=== PATIENT | male | born 1945 | race Two or more races ===

== ENCOUNTER 2020-03-21 11:54 | Emergency (ER) | payer OTHER ==
[~2020-03-21] VITALS: Ht 165.1 cm; Wt 74.8 kg
[~2020-03-21 11:54] MED LIST: ASPI-498 OR; ATOR10TA PO; LIS5T GT; MEC25T GT; METF-489 PO; NAP500T GT
[2020-03-21 12:08] VITALS: BP 158/63
[2020-03-21] MEDS ORDERED: KETOROLAC TROMETH 30 MG/ML 1ML VIAL IM ONE (14:00)
[2020-03-21] MEDS ORDERED: HYDROcodone-ACET 5/325MG TAB PO ONE (14:00)
== END 2020-03-21 14:32 | disposition home or self-care (01) ==
LOC: ER 11:54
DX: S16.1XXA Strain of muscle, fascia and tendon at neck level, initial encounter (principal); M50.322 Other cervical disc degeneration at C5-C6 level; E11.9 Type 2 diabetes mellitus without complications; E78.5 Hyperlipidemia, unspecified; F17.210 Nicotine dependence, cigarettes, uncomplicated; X50.1XXA Overexertion from prolonged static or awkward postures, initial encounter; Y93.89 Activity, other specified; Y92.89 Other specified places as the place of occurrence of the external cause; Y99.8 Other external cause status
CPT/HCPCS: 72040; 96372; 99283; J1885

== ENCOUNTER 2024-09-01 15:29 | Inpatient (IN) | payer OTHER ==
[~2024-09-01] VITALS: Ht 165.1 cm; Wt 64.1 kg
--- NOTE | 2024-09-01 16:13 | ED.PDOC ---
Altered Mental Status HPI Comments 78 year old male brought in by granddaughter presents to the ED with chief complaint ALOC. Granddaughter reports that the patient was last seen normal at 2pm today. Granddaughter relays that the patient is currently experiencing his 3rd episode of ALOC with associated fatigue. Patient has history of DM and dementia. Patient denies any pain at this time. Granddaughter denies any fever, chills, chest pain, SOB, or N/V. Chief Complaint: General Weakness Time Seen by MD: 16:00 Primary Care Provider: ROMIE Reviewed Notes: Nurses Notes, Medications, Allergies Allergies: Coded Allergies: NO KNOWN ALLERGIES (Unverified , 05/27/13) Home Meds Reported Medications Naproxen (NAPROSYN TABLET) 500 Mg Tb, 0 GT 05/27/13 Lisinopril (ZESTRIL TABLET) 5 Mg Tb, 0 GT 05/27/13 Atorvastatin Calcium (Lipitor) 10 Mg Tab, 0 PO, TAB 05/27/13 Aspirin (ASPIRIN 81) 81 Mg Tab, 81 MG OR, TAB 05/27/13 Meclizine Hcl (ANTIVERT TABLET) 25 Mg Tb, 0 GT 05/27/13 Metformin Hydrochloride (METFORMIN HCL ER) 500 Mg Tab, 0 PO, TAB 05/27/13 Information Source: Relative (GrandChild) Mode of Arrival: Wheelchair Severity: Moderate, Unable to Care for Self Timing: Hours Duration: Since onset Prehospital treatment: None Quality: Decreased Alertness, Change in Behavior, Confusion Recent: None History of: Dementia, Diabetes Past Medical History PAST MEDICAL HISTORY: Dementia, DM, High Lipids Surgical History: Denies all surgeries Family History Family History: No family hx of DM Social History Smoker: Cigarettes, Less Than 1 Pack/Day, Other Alcohol: Denies ETOH Use Drugs: Denies Drug Use Lives In: Home Constitutional: reports: fatigue; denies: chills, diaphoresis, fever, malaise, sweats, weakness, others EENTM: denies: blurred vision, double vision, ear bleeding, ear discharge, ear drainage, ear pain, ear ringing, eye pain, eye redness, hearing loss, mouth pain, mouth swelling, nasal discharge, nose bleeding, nose congestion, nose pain, photophobia, tearing, throat pain, throat swelling, voice changes, others Respiratory: denies: cough, hemoptysis, orthopnea, SOB at rest, shortness of breath, SOB with excertion, stridor, wheezing, others Cardiovascular: denies: chest pain, dizzy spells, diaphoresis, Dyspnea on exertion, edema, irregular heart beat, left arm pain, lightheadedness, palpitations, PND, syncope, others Gastrointestinal: denies: abdomen distended, abdominal pain, blood streaked bowels, constipated, diarrhea, dysphagia, difficulty swallowing, hematemesis, melena, nausea, poor appetite, poor fluid intake, rectal bleeding, rectal pain, vomiting, others Genitourinary: denies: burning, dysuria, flank pain, frequency, hematuria, incontinence, penile discharge, penile sore, pain, testicle pain, testicle swelling, urgency, others Neurological: denies: dizziness, fainting, headache, left sided numbness, left sided weakness, numbness, paresthesia, pre-existing deficit, right sided numbness, right sided weakness, seizure, speech problems, tingling, tremors, weakness, others Musculoskeletal: denies: back pain, gout, joint pain, joint swelling, muscle pain, muscle stiffness, neck pain, others Integumetry: denies: bruises, change in color, change in hair/nails, dryness, laceration, lesions, lumps, rash, wounds, others Allergic/Immunocompromised: denies: Difficulty Healing, Frequent Infections, Hives, Itching, others Hematologic/Lymphatic: denies: anemia, blood clots, easy bleeding, easy bruising, swollen glands, others Endocrine: denies: excessive hunger, excessive sweating, excessive thirst, excessive urination, flushing, intolerance to cold, intolerance to heat, unexplained weight gain, unexplained weight loss, others Psychiatric: denies: anxiety, bipolar disorder, depression, hopeless, panic disorder, schizophrenia, sleepless, suicidal, others Unable to Obtain due to: Altered Mental Status All Other Systems: Reviewed and Negative Physical Exam General Appearance: No Apparent Distress, Normal, Other (Fatigued) HEENT: Normal ENT Inspection, Pharynx Normal, TMs Normal Neck: Full Range of Motion, Non-Tender, Normal, Normal Inspection Respiratory: Chest Non-Tender, Lungs Clear, No Accessory Muscle Use, No Respiratory Distress, Normal Breath Sounds Cardiovascular: No Edema, No JVD, No Murmur, No Gallop, Normal Peripheral Pulses, Regular Rate/Rhythm Breast Exam: Deferred Gastrointestinal: No Organomegaly, Non Tender, No Pulsatile Mass, Normal Bowel Sounds, Soft Genitalia: Deferred Pelvic: Deferred Rectal: Deferred Extremities: No calf tenderness, Normal capillary refill, Normal inspection, Normal range of motion, Non-tender, No pedal edema Musculoskeletal : Apperance: Normal Neurologic: Alert, power screwdriver operator II-XII nml as Tested, No Motor Deficits, Normal Affect, Normal Mood, No Sensory Deficits, Other (Negative pronator drift.) Cerebellar Function: Normal Reflexes: Normal Skin: Dry, Normal Color, Warm Lymphatic: No Adenopathy Was a procedure done? Was a procedure done?: No Differential Diagnosis (ALOC) Differential Diagnosis: Hypoglycemia, DKA, Seizure, Closed Head Injury, CVA, Mass Lesion X-Ray, Labs, Meds, VS Vital Signs Date Time Temp Pulse Resp B/P (MAP) Pulse Ox O2 Delivery O2 Flow Rate FiO2 09/01/24 18:26 57 09/01/24 17:00 55 15 140/65 (90) 98 09/01/24 16:42 51 12 99 Room Air* 0 21 09/01/24 15:33 97.3 86 16 135/62 (86) 97 97.3 Lab Test 09/01/24 18:31 09/01/24 17:01 09/01/24 16:27 09/01/24 16:12 Range/Units Urine Color Yellow Yellow Urine Clarity Clear Clear Urine pH 8.0 5.0-9.0 Urine Specific Many 1.022 1.001-1.035 Urine Protein Trace H Negative Urine Ketones Negative Negative Urine Blood Negative Negative /uL Urine Nitrite Negative Negative Urine Bilirubin Negative Negative Urine Urobilinogen Normal Negative mg/dL Urine Leukocyte Esterase Negative Negative /uL Urine RBC 1 0 - 3 /hpf Urine Microscopic WBC 1 0-3 /HPF Urine Squamous Epithelial Cells None seen <5 /hpf Urine Bacteria None seen None Seen /hpf Urine Mucus Few None Seen Urine Glucose Normal Normal mg/dL Troponin I High Sensitivity 3 L < 3 L </=54 ng/L POC Glucose 98 70-106 mg/dl White Blood Count 6.8 4.4-10.8 10^3/uL Red Blood Count 4.53 4.5-5.90 10^6/uL Hemoglobin 14.0 13.5-17.5 g/dL Hematocrit 41.8 41.0-53.0 % Mean Corpuscular Volume 92.2 80.0-100.0 fL Mean Corpuscular Hemoglobin 30.9 28.0-32.0 pg Mean Corpuscular Hemoglobin Concent 33.5 32.0-36.0 g/dL Red Cell Distribution Width 14.5 H 11.8-14.3 % Platelet Count 202 140-450 10^3/uL Mean Platelet Volume 7.7 6.9-10.8 fL Neutrophils (%) (Auto) 75.0 37.0-80.0 % Lymphocytes (%) (Auto) 16.7 10.0-50.0 % Monocytes (%) (Auto) 5.1 0.0-12.0 % Eosinophils (%) (Auto) 2.8 0.0-7.0 % Basophils (%) (Auto) 0.4 0.0-2.0 % Neutrophils # (Auto) 5.1 1.6-8.6 10 ^3/uL Lymphocytes # (Auto) 1.1 0.4-5.4 10 ^3/uL Monocytes # (Auto) 0.3 0-1.3 10 ^3/uL Eosinophils # (Auto) 0.2 0-0.8 10 ^3/uL Basophils # (Auto) 0 0-0.2 10 ^3/uL Nucleated Red Blood Cells 0.1 % Sodium Level 140 136-145 mmol/L Potassium Level 4.1 3.5-5.1 mmol/L Chloride Level 104 98-107 mmol/L Carbon Dioxide Level 27 20-31 mmol/L Anion Gap 9 5-15 Blood Urea Nitrogen 17 9-23 mg/dL Creatinine 0.87 0.700-1.30 mg/dL Glomerular Filtration Rate Calc 88 >90 mL/min BUN/Creatinine Ratio 19.5 10.0-20.0 Serum Glucose 96 74-106 mg/dL Calcium Level 10.3 8.7-10.4 mg/dL Total Bilirubin 0.4 0.2-1.0 mg/dL Aspartate Amino Transferase (AST) 14 13-40 U/L Alanine Aminotransferase (ALT) 24 7-40 U/L Alkaline Phosphatase 85 46-116 U/L Total Protein 6.5 5.7-8.2 g/dL Albumin 4.5 3.2-4.8 g/dL Test 09/01/24 15:42 Range/Units POC Glucose 90 70-106 mg/dl CT Head: FINDINGS: There is sulcal and ventricular prominence. The brainshows normal morphology and mcintosh-white matter differentiation, without intracranial hemorrhage, extra-axial fluid collection, mass effect or acute large vessel infarct. The ventricles are normal in size. The basal cisterns are patent. The skull and visible facial bones are intact. The paranasal sinuses, mastoid air cells and middle ear cavities are well-aerated. The soft tissues of the scalp are unremarkable. IMPRESSION: No acute intracranial abnormality. Chest XR: FINDINGS: Lungs: Atelectasis in the lung bases. No focal consolidation. Cardiac: Heart size is within normal limits. Pulmonary vasculature: Unremarkable. Mediastinum/jay: Unremarkable. Bones: No acute osseous abnormality identified. Other: No other significant findings. IMPRESSION: No evidence of acute disease in the chest. X-Ray, Labs, Meds, VS Comment Imaging: X-rays and CT scans were reviewed and interpreted by this provider, imaging shows no fractures and no pathological disease. Pending radiology review. Laboratory: Labs reviewed and interpreted by this provider. No significant abnormalities noted. Patient has prior medical visits reviewed. Med reconciliation performed Vital signs reviewed Upon 2nd assessment, patient was alert and oriented, nonlethargic. He was concerned that this is the 3rd episode patient was had in one week. Patient could not see a primary care doctor until middle of September. Patient will be admitted for transient and LOC Recommend neurology consult in the morning Images Reviewed?: Images reviewed and evaluated by me Time of 1ST Reevaluation: 17:00 Reevaluation 1ST: Unchanged Patient Education/Counseling: Diagnosis, Treatment Family Education/Counseling: Diagnosis, Treatment Departure 1 Departure Time of Disposition: 18:56 Impression: Primary Impression: Dementia Qualified Codes: F03.A11 - Unspecified dementia, mild, with agitation Additional Impressions: Metabolic encephalopathy TIA (transient ischemic attack) Disposition: ADMITTED INPATIENT Condition: Stable Discharged With: Relative, Spouse Critical Care Note Critical Care Time?: No Stability Stability form required: No Heart Score Heart Score: Heart Score Response (Comments) Value History N/A 0 EKG N/A 0 Age N/A 0 Risk Factors N/A 0 Troponin N/A 0 Total 0 I personally scribed for AFSANEH HAWKINS SHOWROOM SALES ASSISTANT ([email or web address]) on 09/01/24 at 16:13. Electronically submitted by Fahad Reddy ([email or web address]). I personally scribed for AFSANEH HAWKINS E SHOWROOM SALES ASSISTANT ([email or web address]) on 09/01/24 at 16:59. Electronically submitted by Fahad Reddy ([email or web address]). I personally scribed for AFSANEH HAWKINS E SHOWROOM SALES ASSISTANT ([email or web address]) on 09/01/24 at 17:00. Electronically submitted by Fahad Reddy ([email or web address]). AFSANEH HAWKINS SHOWROOM SALES ASSISTANT Sep 01, 2024 16:13
--- NOTE | 2024-09-01 16:15 | DVH ---
CT HEAD WITHOUT CONTRAST INDICATION: ALOC : 78 old Male ALOC EXAM DATE: 09/01/2024 03:42 PM COMPARISON: None RADIATION DOSE: CTDIvol: 54.16 mGy, DLP: 868.24 mGy*cm PROCEDURE: CT scans of the head were obtained from the vertex to the skull base. Sagittal and coronal reconstructions were provided. All CT scans at this medical facility are performed using dose modulation techniques as appropriate t o a performed exam including the following: Automated exposure control was utilized; adjustment of th e MA and/or KV according to patient size; and use of iterative reconstruction technique. FINDINGS: There is sulcal and ventricular prominence. The brainshows normal morphology and mcintosh-whi te matter differentiation, without intracranial hemorrhage, extra-axial fluid collection, mass effect or acute large vessel infarct. The ventricles are normal in size. The basal cisterns are patent. The skull and visible facial bones are intact. The paranasal sinuses, mastoid air cells and middle ear c avities are well-aerated. The soft tissues of the scalp are unremarkable. IMPRESSION: No acute intracranial abnormality.
--- NOTE | 2024-09-01 16:18 | DVH ---
CLINICAL INFORMATION: Chest pain. TECHNIQUE: Single AP portable chest radiograph was obtained. COMPARISON: None FINDINGS: Lungs: Atelectasis in the lung bases. No focal consolidation. Cardiac: Heart size is within normal limits. Pulmonary vasculature: Unremarkable. Mediastinum/jay: Unremarkable. Bones: No acute osseous abnormality identified. Other: No other significant findings. IMPRESSION: No evidence of acute disease in the chest.
[2024-09-01 16:20] LABS: Basophils # (auto) 0 10 ^3/uL (0-0.2); Basophils % (auto) 0.4 % (0.0-2.0); Eosinophils # (auto) 0.2 10 ^3/uL (0-0.8); Eosinophils % (auto) 2.8 % (0.0-7.0); Hematocrit 41.8 % (41.0-53.0); Lymphocytes # (auto) 1.1 10 ^3/uL (0.4-5.4); Lymphocytes % (auto) 16.7 % (10.0-50.0); Mean Corpuscular Hemoglobin 30.9 pg (28.0-32.0); Mean Corpuscular Hgb Conc. 33.5 g/dL (32.0-36.0); Mean Corpuscular Volume 92.2 fL (80.0-100.0); Monocytes # (auto) 0.3 10 ^3/uL (0-1.3); Monocytes % (auto) 5.1 % (0.0-12.0); Neutrophils # (auto) 5.1 10 ^3/uL (1.6-8.6); Nucleated Red Blood Cells % 0.1 %; Platelet Count (auto) 202 10^3/uL (140-450); Red Blood Cells 4.53 10^6/uL (4.5-5.90); Red Cell Distribution Width 14.5 % (11.8-14.3); White Blood Cell 6.8 10^3/uL (4.4-10.8)
[2024-09-01 16:39] LABS: Alanine Aminotransferase 24 U/L (7-40); Albumin 4.5 g/dL (3.2-4.8); Alkaline Phosphatase 85 U/L (46-116); Anion Gap 9 (5-15); Aspartate Aminotransferase 14 U/L (13-40); BUN/Creatinine Ratio 19.5 (10.0-20.0); Bilirubin, Total 0.4 mg/dL (0.2-1.0); Blood Urea Nitrogen 17 mg/dL (9-23); Calcium 10.3 mg/dL (8.7-10.4); Carbon Dioxide 27 mmol/L (20-31); Chloride 104 mmol/L (98-107); Glucose 96 mg/dL (74-106); Potassium 4.1 mmol/L (3.5-5.1); Sodium 140 mmol/L (136-145); Total Protein 6.5 g/dL (5.7-8.2)
[2024-09-01 16:42] VITALS: PULSE 51; RESP 12; O2SAT 99
--- NOTE | 2024-09-01 18:10 | ECG ---
[facility] Test Date: 2024-09-01 Test Time: 15:38:28 Pat Name: ABRIL ELLIS Department: ED Room: [address] [place] [address] Gender: M Gui Developer: JONH : 1945 Requested By: AFSANEH HAWKINS Order Number: [id number] Reading MD: Live Connolly Measurements Intervals [place] Rate: 54 P: 72 FL: 150 QRS: 71 QRSD: 90 T: 64 QT: 433 QTc: 411 Interpretive Statements Sinus rhythm Electronically Signed On 09-01-2024 20:39:53 PDT by Live Connolly Please click the below link to view image of tracing.
[2024-09-01 18:44] LABS: Urine Bacteria None Seen /hpf (None Seen)
[2024-09-01 18:51] LABS: Urine Blood Negative /uL (Negative); Urine Clarity Clear (Clear); Urine Color Yellow (Yellow); Urine Mucus FEW (None Seen); Urine Protein, UAD TRACE (Negative); Urine Specific Gravity 1.022 (1.001-1.035); Urine Squamous Epithelial Cell None Seen /hpf (<5); Urine Urobilinogen Normal (Negative); Urine WBC 1 /HPF (0-3)
--- NOTE | 2024-09-01 19:16 | DVHHP2 ---
Admitting Diagnosis: Altered mental status History of Present Illness 78 year old male brought in by granddaughter presents to the ED with chief complaint ALOC. Granddaughter reports that the patient was last seen normal at 2pm today. Granddaughter relays that the patient is currently experiencing his 3rd episode of ALOC with associated fatigue. Patient has history of DM and dementia. Patient denies any pain at this time. Granddaughter denies any fever, chills, chest pain, SOB, or N/V. PAST MEDICAL HISTORY: Dementia, DM, High Lipids Surgical History: Denies all surgeries Family History: No family hx of DM Social History Smoker: Cigarettes, Less Than 1 Pack/Day, Other Alcohol: Denies ETOH Use Drugs: Denies Drug Use Lives In: Home Allergies: Coded Allergies: NO KNOWN ALLERGIES (Unverified , 05/27/13) Home Meds Reported Medications Naproxen (NAPROSYN TABLET) 500 Mg Tb, 0 GT 05/27/13 Lisinopril (ZESTRIL TABLET) 5 Mg Tb, 0 GT 05/27/13 Atorvastatin Calcium (Lipitor) 10 Mg Tab, 0 PO, TAB 05/27/13 Aspirin (ASPIRIN 81) 81 Mg Tab, 81 MG OR, TAB 05/27/13 Meclizine Hcl (ANTIVERT TABLET) 25 Mg Tb, 0 GT 05/27/13 Metformin Hydrochloride (METFORMIN HCL ER) 500 Mg Tab, 0 PO, TAB 05/27/13 Current Medications Current Medications Medications (Trade) Dose Ordered Sig/Jaennie Route PRN Reason Start Time Stop Time Status Last Admin Lisinopril (Zestril Tablet) 5 mg DAILY GT 09/02/24 10:00 09/01/24 19:31 DC Aspirin 81 mg DAILY GT 09/02/24 10:00 09/01/24 19:31 DC Sodium Chloride (Saline Lock Ns) 10 ml Q8HR IV 09/01/24 22:00 Docusate Sodium (Colace Capsule) 100 mg BIDPRN PRN PO FOR CONSTIPATION 09/01/24 19:30 Acetaminophen (Tylenol Tablet) 650 mg Q6HP PRN PO PAIN SCALE 1-3 OR TEMP>100.4 09/01/24 19:30 Acetaminophen/ Hydrocodone Bitart ([place] 5/325MG Tab) 1 tab Q4HP PRN PO MODERATE PAIN (4-6 PAIN SCALE) 09/01/24 19:30 Ondansetron HCl (Zofran) 4 mg Q4HP PRN IV NAUSEA / VOMITING 09/01/24 19:30 Enoxaparin Sodium (Lovenox) 40 mg DAILY SC 09/02/24 10:00 Aspirin (Ecotrin Enteric Coated Tablet) 81 mg DAILY PO 09/02/24 10:00 UNV Vital Signs Vital Signs Date Time Temp Pulse Resp B/P (MAP) Pulse Ox O2 Delivery O2 Flow Rate FiO2 09/01/24 19:00 62 13 141/63 (89) 98 09/01/24 16:42 Room Air* 0 21 09/01/24 15:33 97.3 97.3 Physical Exam Generally-78 years old male, well nourished well developed. No apparent distress HEENT-atraumatic, normocephalic Heart-regular rate and rhythm Lungs clear to auscultate bilaterally Abdomen soft nontender nondistended Musculoskeletal-no edema cyanosis Neuro-awake, alert, confused, unable to converse. Strength and sensory intact. Results Labs Test 09/01/24 18:31 09/01/24 17:01 09/01/24 16:27 09/01/24 16:12 Range/Units Urine Color Yellow Yellow Urine Clarity Clear Clear Urine pH 8.0 5.0-9.0 Urine Specific [place] 1.022 1.001-1.035 Urine Protein Trace H Negative Urine Ketones Negative Negative Urine Blood Negative Negative /uL Urine Nitrite Negative Negative Urine Bilirubin Negative Negative Urine Urobilinogen Normal Negative mg/dL Urine Leukocyte Esterase Negative Negative /uL Urine RBC 1 0 - 3 /hpf Urine Microscopic WBC 1 0-3 /HPF Urine Squamous Epithelial Cells None seen <5 /hpf Urine Bacteria None seen None Seen /hpf Urine Mucus Few None Seen Urine Glucose Normal Normal mg/dL Troponin I High Sensitivity 3 L </=54 ng/L POC Glucose 98 70-106 mg/dl White Blood Count 6.8 4.4-10.8 10^3/uL Red Blood Count 4.53 4.5-5.90 10^6/uL Hemoglobin 14.0 13.5-17.5 g/dL Hematocrit 41.8 41.0-53.0 % Mean Corpuscular Volume 92.2 80.0-100.0 fL Mean Corpuscular Hemoglobin 30.9 28.0-32.0 pg Mean Corpuscular Hemoglobin Concent 33.5 32.0-36.0 g/dL Red Cell Distribution Width 14.5 H 11.8-14.3 % Platelet Count 202 140-450 10^3/uL Mean Platelet Volume 7.7 6.9-10.8 fL Neutrophils (%) (Auto) 75.0 37.0-80.0 % Lymphocytes (%) (Auto) 16.7 10.0-50.0 % Monocytes (%) (Auto) 5.1 0.0-12.0 % Eosinophils (%) (Auto) 2.8 0.0-7.0 % Basophils (%) (Auto) 0.4 0.0-2.0 % Neutrophils # (Auto) 5.1 1.6-8.6 10 ^3/uL Lymphocytes # (Auto) 1.1 0.4-5.4 10 ^3/uL Monocytes # (Auto) 0.3 0-1.3 10 ^3/uL Eosinophils # (Auto) 0.2 0-0.8 10 ^3/uL Basophils # (Auto) 0 0-0.2 10 ^3/uL Nucleated Red Blood Cells 0.1 % Sodium Level 140 136-145 mmol/L Potassium Level 4.1 3.5-5.1 mmol/L Chloride Level 104 98-107 mmol/L Carbon Dioxide Level 27 20-31 mmol/L Anion Gap 9 5-15 Blood Urea Nitrogen 17 9-23 mg/dL Creatinine 0.87 0.700-1.30 mg/dL Glomerular Filtration Rate Calc 88 >90 mL/min BUN/Creatinine Ratio 19.5 10.0-20.0 Serum Glucose 96 74-106 mg/dL Calcium Level 10.3 8.7-10.4 mg/dL Total Bilirubin 0.4 0.2-1.0 mg/dL Aspartate Amino Transferase (AST) 14 13-40 U/L Alanine Aminotransferase (ALT) 24 7-40 U/L Alkaline Phosphatase 85 46-116 U/L Total Protein 6.5 5.7-8.2 g/dL Albumin 4.5 3.2-4.8 g/dL Primary Diagnosis Altered mental status Worsening dementia Plan CT head negative for acute intracranial hemorrhage UA negative Chest x-ray negative for pneumonia Check brain MRI Check TSH , B12 Neurology consult for altered mental status possible worsening dementia Neuro check per floor protocol Resume home meds IV fluids Full code Lovenox for DVT prophylaxis PPI for GI prophylaxis Plan discussed with: Patient Problems List: (1) Dementia Status: Acute (2) Metabolic encephalopathy Status: Acute Date of Service: Sep 01, 2024 Billing Provider: DESIREE HAYWOOD MD Common Visit Codes: [id number]-[id number] INP/OBS CARE (MOD) DESIREE HAYWOOD MD Sep 01, 2024 19:16
[2024-09-01 19:30] VITALS: PULSE 68; RESP 14; O2SAT 99
[2024-09-01] MEDS ORDERED: ONDANSETRON HCL 4 MG/2 ML VIAL IV PRN (19:30)
[2024-09-01] MEDS ORDERED: HYDROcodone-ACET 5/325MG TAB PO PRN (19:30)
[2024-09-01] MEDS ORDERED: ACETAMINOPHEN 325 MG TAB PO PRN (19:30)
[2024-09-01] MEDS ORDERED: DOCUSATE SOD 100 MG CAP PO PRN (19:30)
[2024-09-01] MEDS ORDERED: LACTULOSE 20Gm/30ML SOLN PO PRN (19:45)
[2024-09-01] MEDS ORDERED: DEXTROSE (50%) 50ML SYRG IV PRN (19:45)
[2024-09-01] MEDS: LISINOPRIL 5 MG TAB PO ONE (21:16)
[2024-09-01 21:50] VITALS: BP 125/63; PULSE 58; RESP 16; TEMP 97.7; O2SAT 95
[2024-09-01 21:51] VITALS: PULSE 73; RESP 18; O2SAT 99
[2024-09-01] MEDS ORDERED: TAMS0.4C39 PO (22:02)
[2024-09-01] MEDS ORDERED: METF-370 PO (22:02)
[2024-09-01] MEDS ORDERED: ENAL1TAB42 PO (22:02)
[2024-09-01] MEDS ORDERED: FIN5T PO (22:02)
[2024-09-01] MEDS ORDERED: ATOR40TA52 PO (22:02)
[2024-09-01] MEDS ORDERED: INS7030I SC (22:02)
[2024-09-01] MEDS ORDERED: LACT10SO59 PO (22:02)
[2024-09-01] MEDS ORDERED: DONE5TAB80 PO (22:02)
[2024-09-01] MEDS: InsuLIN REG 1unit/0.01ml Soln (100units/ml) SC SCH (23:55)
[2024-09-01] MEDS: SODIUM CHLOR 0.9% PF (SALINE LOCK) 10ML VIAL/SYR IV SCH (23:55)
[2024-09-01] MEDS: ACCU-CHEK COMFORT CURVE STRIP VI SCH (23:55)
[2024-09-02 01:00] VITALS: BP 140/74; PULSE 73; RESP 15; TEMP 98; O2SAT 99
[2024-09-02 05:00] VITALS: BP 150/56; PULSE 64; RESP 16; TEMP 97.9; O2SAT 98
--- NOTE | 2024-09-02 07:55 | DVH ---
ABDOMINAL RADIOGRAPH Indication: r/o constipation Technique: Single frontal view of the abdomen was obtained Comparison: None FINDINGS: Lines and tubes: None There is a nonobstructive bowel gas pattern. No supine radiographic evidence of pneumoperitoneum. Bon y structures unremarkable. IMPRESSION: 1. Nonobstructive bowel gas pattern.
[2024-09-02 08:00] VITALS: RESP 17
[2024-09-02 08:22] LABS: Basophils # (auto) 0 10 ^3/uL (0-0.2); Basophils % (auto) 0.5 % (0.0-2.0); Eosinophils # (auto) 0.1 10 ^3/uL (0-0.8); Hematocrit 43.8 % (41.0-53.0); Hemoglobin 14.8 g/dL (13.5-17.5); Lymphocytes # (auto) 1.4 10 ^3/uL (0.4-5.4); Lymphocytes % (auto) 21.3 % (10.0-50.0); Mean Corpuscular Hemoglobin 31.4 pg (28.0-32.0); Mean Corpuscular Hgb Conc. 33.8 g/dL (32.0-36.0); Mean Corpuscular Volume 92.7 fL (80.0-100.0); Monocytes # (auto) 0.4 10 ^3/uL (0-1.3); Monocytes % (auto) 6.6 % (0.0-12.0); Neutrophils # (auto) 4.6 10 ^3/uL (1.6-8.6); Neutrophils % (auto) 70.6 % (37.0-80.0); Nucleated Red Blood Cells % 0.1 %; Platelet Count (auto) 220 10^3/uL (140-450); Red Blood Cells 4.72 10^6/uL (4.5-5.90); Red Cell Distribution Width 14.8 % (11.8-14.3); White Blood Cell 6.5 10^3/uL (4.4-10.8)
[2024-09-02 08:51] LABS: Alanine Aminotransferase 18 U/L (7-40); Albumin 4.4 g/dL (3.2-4.8); Alkaline Phosphatase 72 U/L (46-116); Anion Gap 10 (5-15); BUN/Creatinine Ratio 15.2 (10.0-20.0); Blood Urea Nitrogen 12 mg/dL (9-23); Calcium 10.2 mg/dL (8.7-10.4); Carbon Dioxide 25 mmol/L (20-31); Chloride 106 mmol/L (98-107); Potassium 3.9 mmol/L (3.5-5.1); Sodium 141 mmol/L (136-145); Total Protein 6.7 g/dL (5.7-8.2)
[2024-09-02 08:52] LABS: Aspartate Aminotransferase 12 U/L (13-40); Bilirubin, Total 0.8 mg/dL (0.2-1.0); Glucose 137 mg/dL (74-106)
[2024-09-02 09:00] VITALS: BP 122/53; PULSE 60; RESP 18; TEMP 98.6; O2SAT 97
--- NOTE | 2024-09-02 09:10 | DVH ---
EXAMINATION: MRI BRAIN HEAD WO CONTRAST INDICATION: worsening mental status r/o stroke COMPARISON: CT scan of the head performed on 09/01/2024. TECHNIQUE: Multiplanar, multisequence magnetic resonance imaging of the brain was performed without the use of i ntravenous contrast. FINDINGS: No evidence of acute or remote infarct. No intracranial hemorrhage. No mass effect. There is periventricular/deep white matter T2/FLAIR hyperintensity is nonspecific, but most commonly associated with chronic microvascular disease. The ventricles and sulci are normal in size for age. Clear basal cisterns. Flow voids in the major intracranial vessels are maintained. No abnormality of the orbits. Paranasal sinuses and mastoid air cells are clear. No abnormality of the visualized osseous structures and extracranial soft tissues. IMPRESSION: 1. No acute infarct, intracranial hemorrhage, mass effect, or hydrocephalus.
[2024-09-02] MEDS: ASPirin-EC 81 mg tab PO SCH (09:55)
[2024-09-02] MEDS: ENOXAPARIN SOD 40 MG/0.4 ML SYRINGE SC SCH (09:55)
[2024-09-02] MEDS: TAMSULOSIN HYDROCHLORIDE 0.4 MG CAP PO SCH (09:56)
[2024-09-02] MEDS: FINASTERIDE 5 MG TAB PO SCH (09:57)
[2024-09-02] MEDS: ATORVASTATIN 20 MG TAB PO SCH (09:57)
[2024-09-02] MEDS ORDERED: ASPirin 81 mg TAB GT SCH (10:00)
[2024-09-02] MEDS ORDERED: LISINOPRIL 5 MG TAB GT SCH (10:00)
[2024-09-02 10:16] LABS: Free T4 (Free Thyroxine) 1.27 ng/dL (0.89-1.76)
[2024-09-02 13:00] VITALS: BP 101/50; PULSE 60; RESP 20; TEMP 97.7; O2SAT 99
--- NOTE | 2024-09-02 13:04 | DVHDS2 ---
Discharge Summary Date of Admission Sep 01, 2024 at 19:16 Date of Discharge: Sep 02, 2024 Labs/Diagnostic Data: Laboratory Results Test 09/02/24 11:44 09/02/24 07:42 09/01/24 18:31 09/01/24 17:01 POC Glucose 125 mg/dl (70-106) White Blood Count 6.5 10^3/uL (4.4-10.8) Red Blood Count 4.72 10^6/uL (4.5-5.90) Hemoglobin 14.8 g/dL (13.5-17.5) Hematocrit 43.8 % (41.0-53.0) Mean Corpuscular Volume 92.7 fL (80.0-100.0) Mean Corpuscular Hemoglobin 31.4 pg (28.0-32.0) Mean Corpuscular Hemoglobin Concent 33.8 g/dL (32.0-36.0) Red Cell Distribution Width 14.8 % (11.8-14.3) Platelet Count 220 10^3/uL (140-450) Mean Platelet Volume 8.1 fL (6.9-10.8) Neutrophils (%) (Auto) 70.6 % (37.0-80.0) Lymphocytes (%) (Auto) 21.3 % (10.0-50.0) Monocytes (%) (Auto) 6.6 % (0.0-12.0) Eosinophils (%) (Auto) 1.0 % (0.0-7.0) Basophils (%) (Auto) 0.5 % (0.0-2.0) Neutrophils # (Auto) 4.6 10 ^3/uL (1.6-8.6) Lymphocytes # (Auto) 1.4 10 ^3/uL (0.4-5.4) Monocytes # (Auto) 0.4 10 ^3/uL (0-1.3) Eosinophils # (Auto) 0.1 10 ^3/uL (0-0.8) Basophils # (Auto) 0 10 ^3/uL (0-0.2) Nucleated Red Blood Cells 0.1 % Sodium Level 141 mmol/L (136-145) Potassium Level 3.9 mmol/L (3.5-5.1) Chloride Level 106 mmol/L (98-107) Carbon Dioxide Level 25 mmol/L (20-31) Anion Gap 10 (5-15) Blood Urea Nitrogen 12 mg/dL (9-23) Creatinine 0.79 mg/dL (0.700-1.30) Glomerular Filtration Rate Calc 91 mL/min (>90) BUN/Creatinine Ratio 15.2 (10.0-20.0) Serum Glucose 137 mg/dL (74-106) Calcium Level 10.2 mg/dL (8.7-10.4) Total Bilirubin 0.8 mg/dL (0.2-1.0) Aspartate Amino Transferase (AST) 12 U/L (13-40) Alanine Aminotransferase (ALT) 18 U/L (7-40) Alkaline Phosphatase 72 U/L (46-116) Total Protein 6.7 g/dL (5.7-8.2) Albumin 4.4 g/dL (3.2-4.8) Urine Color Yellow (Yellow) Urine Clarity Clear (Clear) Urine pH 8.0 (5.0-9.0) Urine Specific [place] 1.022 (1.001-1.035) Urine Protein Trace (Negative) Urine Ketones Negative (Negative) Urine Blood Negative /uL (Negative) Urine Nitrite Negative (Negative) Urine Bilirubin Negative (Negative) Urine Urobilinogen Normal mg/dL (Negative) Urine Leukocyte Esterase Negative /uL (Negative) Urine RBC 1 /hpf (0 - 3) Urine Microscopic WBC 1 /HPF (0-3) Urine Squamous Epithelial Cells None seen /hpf (<5) Urine Bacteria None seen /hpf (None Seen) Urine Mucus Few (None Seen) Urine Glucose Normal mg/dL (Normal) Troponin I High Sensitivity 3 ng/L (</=54) Test 09/01/24 16:12 C-Reactive Protein High Sensitivity 0.02 mg/dL (<1.0) Vitamin B12 Level 657 pg/mL (211-911) Thyroid Stimulating Hormone (TSH) 1.12 uIU/mL (0.55-4.78) Free Thyroxine (T4) Calculated 1.27 ng/dL (0.89-1.76) Other Laboratory Tests 09/02/24 07:42 Brief Hx & Hospital Course: see dictated note Condition at Discharge: Fair Final Diagnosis/Problems List dementia Discharge Disposition: Home Discharge Instruct/Medications Diet: Consistent carbohydrate Activity: No Restrictions, As Tolerated Follow Up/Referral: fu with pcp Medications: resume home meds Discharge Statement: "Patient was advised to return to the ER or call 911 if any headaches, dizziness, shortness of breath, chest pain, abdominal pain, bleeding, fevers, or worsening of medical condition. Patient was counseled about treatment plan, medications, possible side effects, patientverbalized understanding. All questions were answered to the best of my ability. This discharge took greater then 30 minutes in planning, reviewing documentation, counseling the patient, and discussing with other team members." ASSESSMENT ASSESSMENT Assessment dementia Date of Service: Sep 02, 2024 Billing Provider: SANG AGUILAR MD Common Visit Codes: 23906-QKA/OBS DISCH DAY >30min SANG AGUILAR MD Sep 02, 2024 13:04
--- NOTE | 2024-09-02 13:06 | CODING ---
Date of Service: Sep 02, 2024 Billing Provider: SANG AGUILAR MD Common Visit Codes: 97123-ONK/OBS DISCH DAY >30min Secondary Visit Codes: [id number] CARE PLAN 30 MINUTES SANG AGUILAR MD Sep 02, 2024 13:06
--- NOTE | 2024-09-02 13:20 | DVHDS ---
DATE OF DISCHARGE: 09/02/2024 HISTORY OF PRESENT ILLNESS: The patient is a 78-year-old gentleman who is admitted as per the granddaughter with decreased appetite, nausea, vomiting, and fatigue. The patient has a history of dementia, diabetes, hyperlipidemia, and tobacco abuse. HOSPITAL COURSE: The patient had a brain MRI that showed no acute abnormality. The patient had a chest x-ray that was negative. His urine was within normal limits and his chemistries were also negative. The patient now wishes to go home and will be discharged home to resume his home medications and follow up with his primary in one week. FINAL DIAGNOSES: * Questionable acute gastroenteritis. * Dementia with encephalopathy, questionably metabolic. * Diabetes mellitus. * Hyperlipidemia. Time spent in discharge planning, review of plan with the patient and family at bedside is 37 minutes, advanced care planning. The patient is a full code. Time spent was 18 minutes. MD MUKESH Gracia/SAE TID: [id number] RECEIPT: [id number]
== END 2024-09-02 14:37 | disposition home or self-care (01) | DRG 391 ==
LOC: ER 15:33 → OVERFLOW 19:16 → WEST WING 21:52
PROVIDERS: ADMIT Internal Medicine; ATTEND Internal Medicine
DX: K52.9 Noninfective gastroenteritis and colitis, unspecified (principal); G93.41 Metabolic encephalopathy; G45.9 Transient cerebral ischemic attack, unspecified; F17.210 Nicotine dependence, cigarettes, uncomplicated; E78.5 Hyperlipidemia, unspecified; F03.90 Unspecified dementia, unspecified severity, without behavioral disturbance, psychotic disturbance, mood disturbance, and anxiety; E11.9 Type 2 diabetes mellitus without complications; Z79.82 Long term (current) use of aspirin; Z79.84 Long term (current) use of oral hypoglycemic drugs; Z79.899 Other long term (current) drug therapy
CPT/HCPCS: 36415; 70450; 70551; 71045; 74018; 80053; 81001; 82607; 82962; 84439; 84443; 84484; 85025; 86141; 93005; G0378; J1815